=== PATIENT | female | born 1975 | race Caucasian/White ===

== ENCOUNTER → 2017-08-31 | Outpatient (CLI) | payer MEDICAID | END | disposition home or self-care (01) | LOC: DIB 14:46 | DX: E11.9 Type 2 diabetes mellitus without complications (principal) ==

== ENCOUNTER 2019-03-21 13:44 | Inpatient (IN) | payer MEDICAID ==
[2019-03-21 14:13] LABS: AADO2 Venous 78.2 mmHg; MODE ROOM AIR; MetHgb Venous 0.2 %; Sample Type Blood venous; Site OTHER; Venous COHb 0.6 %; Venous Fraction OxyHgb 71.1 %; Venous Oxygen Sat 71.7 mmHG (55.0-75.0); Venous Total Hemglobin 12.3 g/dl
[2019-03-21 14:18] LABS: WHITE BLOOD COUNT 5.9 10^3/ul (4.8-10.8)
[2019-03-21 14:18] LABS: HEMOGLOBIN 11.3 g/dl (12.0-16.0); MEAN CORPUSCULAR HEMOGLOBIN 21.6 pg (29.0-33.0); MEAN CORPUSCULAR HGB CONC 29.7 g/dl (32.0-37.0); MEAN CORPUSCULAR VOLUME 72.7 fl (82.0-101.0); MEAN PLATELET VOLUME 9.1 fl (7.4-10.4); PLATELET COUNT 272 10^3/UL (140-415); RED BLOOD COUNT 5.23 10^6/ul (4.20-5.40); RED CELL DISTRIBUTION WIDTH 17.1 % (11.5-14.5)
[2019-03-21 14:30] LABS: ADD MAN DIFF? YES; POSITIVE DIFF @See below
[2019-03-21 14:36] LABS: ALANINE AMINOTRANSFERASE 22 IU/L (13-69); ALBUMIN 4.1 g/dl (3.3-4.9); ALBUMIN/GLOBULIN RATIO 0.97; ALKALINE PHOSPHATASE 125 IU/L (42-121); ANION GAP 17 (5-13); ASPARTATE AMINO TRANSFERASE 35 IU/L (15-46); BILIRUBIN,INDIRECT 0.4 mg/dl (0-1.1); BILIRUBIN,TOTAL 0.4 mg/dl (0.2-1.3); BLOOD UREA NITROGEN 10 mg/dl (7-20); CALCIUM 8.6 mg/dl (8.4-10.2); CARBON DIOXIDE 17 mmol/L (21-31); CHLORIDE 105 mmol/L (97-110); CREATININE 0.64 mg/dl (0.44-1.00); Estimated GFR > 60 mL/min (>60); GLUCOSE 326 mg/dl (70-220); INR 0.98; MAGNESIUM 1.4 mg/dl (1.7-2.5); PHOSPHORUS 3.5 mg/dl (2.5-4.9); PROTIME 13.1 Sec (11.9-14.9); SODIUM 139 mmol/L (135-144); TOTAL PROTEIN 8.3 g/dl (6.1-8.1)
[2019-03-21 14:37] LABS: PARTIAL THROMBOPLASTIN TIME 26.2 Sec (23.0-35.0)
[2019-03-21] MEDS: CEFEPIME 2GM/50 ML (PMX) 50 ML IVPB (14:37)
[2019-03-21] MEDS: ACETAMINOPHEN 325 MG TAB PO (14:37)
[2019-03-21] MEDS: SODIUM CHLORIDE 0.9% 1L BAG IV* (14:38)
[2019-03-21] MEDS: KETOROLAC 15 MG INJ IV (14:38)
[2019-03-21] MEDS: ONDANSETRON 4 MG INJ IV (14:38)
[2019-03-21 14:47] LABS: TROPONIN-I < 0.012 ng/ml (0.000-0.120)
[2019-03-21 14:51] LABS: ANISOCYTOSIS 2+ (0-0); BAND NEUTROPHILS #M 0.8 10^3/ul (0.0-0.6); BAND NEUTROPHILS % (M) 14 % (0-4); BASOPHILS % (M) 1 % (0-2); BURR CELLS 1+ (0-0); LYMPHOCYTES % (M) 35 % (15-51); MICROCYTOSIS 1+ (0-0); PLATELET ESTIMATE NORMAL; POIKILOCYTOSIS 3+ (0-0); POLYCHROMASIA 3+ (0-0); REACTIVE LYMPHOCYTES #M 0.2 10^3/ul (0.0-0.0); REACTIVE LYMPHOCYTES% (M) 4 % (0-0); SEG NEUT #M 2.8 10^3/ul (1.6-7.5); SEGMENTED NEUTROPHILS (M) % 46 % (39-77); SMUDGE%M 9 % (0-0)
[2019-03-21] MEDS: VANCOMYCIN 1 GM (PMX) 250 ML IVPB (15:07)
[2019-03-21 15:20] LABS: ADD UMIC YES; UR ASCORBIC ACID NEGATIVE (NEGATIVE); UR BACTERIA FEW /HPF (NONE SEEN); UR BILIRUBIN (Dip) NEGATIVE (NEGATIVE); UR BLOOD (Dip) 3+ mg/dL (NEGATIVE); UR CLARITY CLOUDY (CLEAR); UR COLOR YELLOW (YELLOW); UR GLUCOSE (Dip) 3+ mg/dL (NEGATIVE); UR KETONES (Dip) 1+ mg/dL (NEGATIVE); UR LEUKOCYTE ESTERASE (Dip) 1+ Leu/ul (NEGATIVE); UR MUCUS FEW /HPF (NONE SEEN); UR NITRITE (Dip) NEGATIVE (NEGATIVE); UR RBC > 182 /HPF (0-5); UR SPECIFIC GRAVITY (Dip) 1.027 (1.003-1.030); UR SQUAMOUS EPITHELIAL CELL MANY /HPF (FEW); UR TOTAL PROTEIN (Dip) 3+ mg/dl (NEGATIVE); UR UROBILINOGEN (Dip) NEGATIVE (NEGATIVE); UR WBC 51 /HPF (0-5)
[2019-03-21 16:55] LABS: LACTIC ACID 1.2 mmol/L (0.5-2.0)
[2019-03-21] MEDS: ACCU-CHEK XX (17:00)
[2019-03-21] MEDS: SOD CHLORIDE 0.9% 1,000 ML IV ×2 (17:08→17:45)
[2019-03-21] MEDS: INSULIN LISPRO 100 UNIT/ML VIAL SC (17:12)
[2019-03-21] MEDS ORDERED: ACETAMINOPHEN 325 MG TAB PO (18:00)
[2019-03-21] MEDS ORDERED: ONDANSETRON 4 MG INJ IV ×2 (18:00→19:00)
[2019-03-21] MEDS ORDERED: NACL 0.9% 3 ML SYG IV (19:00)
[2019-03-21 19:04] LABS: LACTIC ACID 1.3 mmol/L (0.5-2.0)
[2019-03-21] MEDS ORDERED: GLUCAGON 1 MG INJ IM (19:30)
[2019-03-21] MEDS ORDERED: GLUCOSE GEL 15 GRAM TUBE PO ×2 (19:30)
[2019-03-21] MEDS ORDERED: GLUCOSE GEL 15 GRAM TUBE BUCCAL (19:30)
[2019-03-21] MEDS ORDERED: DEXTROSE 50% 50 ML SYRINGE IV ×2 (19:30)
[2019-03-21] MEDS: CEFTRIAXONE 1 GM/50 ML (PMX) 50 ML IVPB (19:59)
[2019-03-21] MEDS: INSULIN ASPART [NOVOLOG] 3 ML PEN SC (20:05)
[2019-03-21] MEDS: metroNIDAZOLE 500 MG/NS (PMX) 100 ML IVPB (21:12)
[2019-03-21 21:43] LABS: PROCALCITONIN 1.11 ng/mL (0.00-0.10)
[2019-03-21] MEDS ORDERED: metroNIDAZOLE (5 MG/ML) IV SYG IV* (22:00)
[2019-03-21] MEDS ORDERED: AL HYDROX/MG HYDROX/SIMETH 30 ML CUP PO (22:30)
[2019-03-21] MEDS: PANTOPRAZOLE (EC) 40 MG TAB PO (22:36)
[2019-03-22] MEDS: ACCU-CHEK XX (02:22)
[2019-03-22] MEDS: metroNIDAZOLE 500 MG/NS (PMX) 100 ML IVPB ×2 (05:24→13:14)
[2019-03-22 05:53] LABS: ADD MAN DIFF? NO
[2019-03-22 06:03] LABS: BASOPHILS % 0.1 % (0.0-2.0); EOSINOPHILS % 0.1 % (0.0-7.0); HEMATOCRIT 29.1 % (37.0-47.0); HEMOGLOBIN 8.6 g/dl (12.0-16.0); LYMPHOCYTES # 1.2 10^3/ul (0.8-2.9); LYMPHOCYTES % 16.5 % (15.0-51.0); MEAN CORPUSCULAR HEMOGLOBIN 21.8 pg (29.0-33.0); MEAN CORPUSCULAR HGB CONC 29.6 g/dl (32.0-37.0); MEAN CORPUSCULAR VOLUME 73.7 fl (82.0-101.0); MEAN PLATELET VOLUME 9.6 fl (7.4-10.4); MONOCYTE # 0.6 10^3/ul (0.3-0.9); MONOCYTES % 8.7 % (0.0-11.0); NEUTROPHIL # 5.3 10^3/ul (1.6-7.5); NEUTROPHILS % 74.3 % (39.0-77.0); PLATELET COUNT 213 10^3/UL (140-415); RED BLOOD COUNT 3.95 10^6/ul (4.20-5.40); RED CELL DISTRIBUTION WIDTH 17.5 % (11.5-14.5)
[2019-03-22 06:03] LABS: WHITE BLOOD COUNT 7.1 10^3/ul (4.8-10.8)
[2019-03-22] MEDS: PANTOPRAZOLE (EC) 40 MG TAB PO (06:21)
[2019-03-22 06:30] LABS: ALANINE AMINOTRANSFERASE 30 IU/L (13-69); ALBUMIN 2.8 g/dl (3.3-4.9); ALBUMIN/GLOBULIN RATIO 0.87; ALKALINE PHOSPHATASE 77 IU/L (42-121); ANION GAP 7 (5-13); ASPARTATE AMINO TRANSFERASE 28 IU/L (15-46); BILIRUBIN,INDIRECT 0.3 mg/dl (0-1.1); BILIRUBIN,TOTAL 0.3 mg/dl (0.2-1.3); BLOOD UREA NITROGEN 9 mg/dl (7-20); CALCIUM 7.3 mg/dl (8.4-10.2); CARBON DIOXIDE 20 mmol/L (21-31); CHLORIDE 112 mmol/L (97-110); Estimated GFR > 60 mL/min (>60); GLUCOSE 148 mg/dl (70-220); MAGNESIUM 1.7 mg/dl (1.7-2.5); PHOSPHORUS 2.6 mg/dl (2.5-4.9); POTASSIUM 3.3 mmol/L (3.5-5.1); SODIUM 139 mmol/L (135-144)
[2019-03-22 06:42] LABS: IRON < 10 ug/dl (35-150)
[2019-03-22 06:50] LABS: TOTAL IRON BINDING CAPACITY 319 ug/dl (241-421)
[2019-03-22] MEDS: POTASSIUM CHLORIDE (SR) 20 MEQ TAB PO (07:01)
[2019-03-22] MEDS: INSULIN ASPART [NOVOLOG] 3 ML PEN SC ×4 (07:36→22:01)
[2019-03-22] MEDS: ACETAMINOPHEN 325 MG TAB PO ×2 (10:39→21:45)
[2019-03-22 10:48] LABS: THYROID STIMULATING HORMONE 0.473 MIU/L (0.465-4.680)
[2019-03-22 10:56] LABS: FERRITIN 15.1 ng/ml (6.2-137.0)
[2019-03-22] MEDS: MAGNESIUM OXIDE 400 MG TAB PO (15:05)
[2019-03-22] MEDS: CEFTRIAXONE 1 GM/50 ML (PMX) 50 ML IVPB (21:45)
[2019-03-23] MEDS: ACCU-CHEK XX (02:00)
[2019-03-23 05:55] LABS: ADD MAN DIFF? NO
[2019-03-23] MEDS: PANTOPRAZOLE (EC) 40 MG TAB PO (06:07)
[2019-03-23 06:17] LABS: BASOPHILS % 0.2 % (0.0-2.0); EOSINOPHILS % 0.6 % (0.0-7.0); HEMATOCRIT 29.6 % (37.0-47.0); HEMOGLOBIN 8.6 g/dl (12.0-16.0); LYMPHOCYTES # 2.4 10^3/ul (0.8-2.9); LYMPHOCYTES % 45.9 % (15.0-51.0); MEAN CORPUSCULAR HEMOGLOBIN 21.4 pg (29.0-33.0); MEAN CORPUSCULAR HGB CONC 29.1 g/dl (32.0-37.0); MEAN CORPUSCULAR VOLUME 73.8 fl (82.0-101.0); MEAN PLATELET VOLUME 9.9 fl (7.4-10.4); MONOCYTE # 0.7 10^3/ul (0.3-0.9); MONOCYTES % 12.7 % (0.0-11.0); NEUTROPHIL # 2.1 10^3/ul (1.6-7.5); NEUTROPHILS % 40.2 % (39.0-77.0); PLATELET COUNT 237 10^3/UL (140-415); RED BLOOD COUNT 4.01 10^6/ul (4.20-5.40); RED CELL DISTRIBUTION WIDTH 17.6 % (11.5-14.5)
[2019-03-23 06:17] LABS: WHITE BLOOD COUNT 5.3 10^3/ul (4.8-10.8)
[2019-03-23 06:27] LABS: ANION GAP 6 (5-13); BLOOD UREA NITROGEN 4 mg/dl (7-20); CALCIUM 7.8 mg/dl (8.4-10.2); CARBON DIOXIDE 22 mmol/L (21-31); CHLORIDE 111 mmol/L (97-110); CREATININE 0.48 mg/dl (0.44-1.00); Estimated GFR > 60 mL/min (>60); GLUCOSE 155 mg/dl (70-220); MAGNESIUM 2.2 mg/dl (1.7-2.5); POTASSIUM 3.4 mmol/L (3.5-5.1); SODIUM 139 mmol/L (135-144)
[2019-03-23] MEDS: INSULIN ASPART [NOVOLOG] 3 ML PEN SC ×4 (07:56→20:15)
[2019-03-23] MEDS: ACETAMINOPHEN 325 MG TAB PO ×2 (12:00→19:52)
[2019-03-23] MEDS: CEFTRIAXONE 1 GM/50 ML (PMX) 50 ML IVPB (20:16)
[2019-03-24] MEDS: ACCU-CHEK XX (02:00)
[2019-03-24] MEDS: PANTOPRAZOLE (EC) 40 MG TAB PO (06:02)
[2019-03-24] MEDS: IBUPROFEN 600 MG TAB PO ×2 (06:05→20:26)
[2019-03-24] MEDS: INSULIN ASPART [NOVOLOG] 3 ML PEN SC ×5 (07:53→20:34)
[2019-03-24] MEDS: CEFTRIAXONE 1 GM/50 ML (PMX) 50 ML IVPB (20:27)
[2019-03-25] MEDS: ACCU-CHEK XX (02:00)
[2019-03-25] MEDS: PANTOPRAZOLE (EC) 40 MG TAB PO (06:00)
[2019-03-25] MEDS: INSULIN ASPART [NOVOLOG] 3 ML PEN SC ×7 (07:51→20:22)
[2019-03-25] MEDS: INSULIN GLARGINE [LANTus] (100 UNITS/ML) SYG SC (07:51)
[2019-03-25] MEDS: ERTAPENEM SODIUM 1 GM in SOD CHLORIDE 0.9% 100 ML IVPB (12:48)
[2019-03-25] MEDS: IBUPROFEN 600 MG TAB PO (15:20)
[2019-03-26] MEDS: ACCU-CHEK XX (02:00)
[2019-03-26] MEDS: IBUPROFEN 600 MG TAB PO ×2 (03:32→13:51)
[2019-03-26] MEDS: PANTOPRAZOLE (EC) 40 MG TAB PO (05:48)
[2019-03-26 05:56] LABS: ADD MAN DIFF? NO
[2019-03-26 06:00] LABS: BASOPHILS % 0.3 % (0.0-2.0); EOSINOPHILS # 0.1 10^3/ul (0.0-0.5); EOSINOPHILS % 1.5 % (0.0-7.0); HEMATOCRIT 32.6 % (37.0-47.0); HEMOGLOBIN 9.5 g/dl (12.0-16.0); LYMPHOCYTES # 2.7 10^3/ul (0.8-2.9); LYMPHOCYTES % 45.1 % (15.0-51.0); MEAN CORPUSCULAR HEMOGLOBIN 21.3 pg (29.0-33.0); MEAN CORPUSCULAR HGB CONC 29.1 g/dl (32.0-37.0); MEAN CORPUSCULAR VOLUME 72.9 fl (82.0-101.0); MEAN PLATELET VOLUME 9.1 fl (7.4-10.4); MONOCYTE # 0.4 10^3/ul (0.3-0.9); MONOCYTES % 7.3 % (0.0-11.0); NEUTROPHIL # 2.7 10^3/ul (1.6-7.5); NEUTROPHILS % 45.5 % (39.0-77.0); PLATELET COUNT 324 10^3/UL (140-415); RED BLOOD COUNT 4.47 10^6/ul (4.20-5.40); RED CELL DISTRIBUTION WIDTH 17.4 % (11.5-14.5)
[2019-03-26 06:40] LABS: ANION GAP 6 (5-13); BLOOD UREA NITROGEN 12 mg/dl (7-20); CALCIUM 8.1 mg/dl (8.4-10.2); CARBON DIOXIDE 27 mmol/L (21-31); CHLORIDE 107 mmol/L (97-110); CREATININE 0.52 mg/dl (0.44-1.00); Estimated GFR > 60 mL/min (>60); GLUCOSE 232 mg/dl (70-220); POTASSIUM 3.7 mmol/L (3.5-5.1); SODIUM 140 mmol/L (135-144)
[2019-03-26] MEDS: INSULIN GLARGINE [LANTus] (100 UNITS/ML) SYG SC (08:53)
[2019-03-26] MEDS: INSULIN ASPART [NOVOLOG] 3 ML PEN SC ×7 (08:54→20:22)
[2019-03-26] MEDS: ERTAPENEM SODIUM 1 GM in SOD CHLORIDE 0.9% 100 ML IVPB (13:39)
[2019-03-27] MEDS: ACCU-CHEK XX (02:00)
[2019-03-27] MEDS: PANTOPRAZOLE (EC) 40 MG TAB PO (05:23)
[2019-03-27] MEDS: IBUPROFEN 600 MG TAB PO (05:26)
[2019-03-27 06:10] LABS: ADD MAN DIFF? NO
[2019-03-27 06:15] LABS: BASOPHILS % 0.3 % (0.0-2.0); EOSINOPHILS # 0.1 10^3/ul (0.0-0.5); EOSINOPHILS % 1.7 % (0.0-7.0); HEMATOCRIT 31.9 % (37.0-47.0); HEMOGLOBIN 9.4 g/dl (12.0-16.0); LYMPHOCYTES # 2.6 10^3/ul (0.8-2.9); MEAN CORPUSCULAR HEMOGLOBIN 21.4 pg (29.0-33.0); MEAN CORPUSCULAR HGB CONC 29.5 g/dl (32.0-37.0); MEAN CORPUSCULAR VOLUME 72.7 fl (82.0-101.0); MONOCYTE # 0.5 10^3/ul (0.3-0.9); MONOCYTES % 6.9 % (0.0-11.0); NEUTROPHIL # 3.8 10^3/ul (1.6-7.5); NEUTROPHILS % 53.5 % (39.0-77.0); PLATELET COUNT 383 10^3/UL (140-415); RED BLOOD COUNT 4.39 10^6/ul (4.20-5.40); RED CELL DISTRIBUTION WIDTH 17.6 % (11.5-14.5)
[2019-03-27 06:15] LABS: WHITE BLOOD COUNT 7.1 10^3/ul (4.8-10.8)
[2019-03-27 06:42] LABS: ANION GAP 8 (5-13); BLOOD UREA NITROGEN 13 mg/dl (7-20); CALCIUM 8.2 mg/dl (8.4-10.2); CARBON DIOXIDE 25 mmol/L (21-31); CHLORIDE 107 mmol/L (97-110); CREATININE 0.43 mg/dl (0.44-1.00); Estimated GFR > 60 mL/min (>60); GLUCOSE 206 mg/dl (70-220); POTASSIUM 4.1 mmol/L (3.5-5.1); SODIUM 140 mmol/L (135-144)
[2019-03-27] MEDS: INSULIN ASPART [NOVOLOG] 3 ML PEN SC ×8 (08:27→21:14)
[2019-03-27] MEDS: INSULIN GLARGINE [LANTus] (100 UNITS/ML) SYG SC (08:27)
[2019-03-27] MEDS: ERTAPENEM SODIUM 1 GM in SOD CHLORIDE 0.9% 100 ML IVPB (13:19)
[2019-03-28] MEDS: ACCU-CHEK XX (02:00)
[2019-03-28] MEDS: PANTOPRAZOLE (EC) 40 MG TAB PO (06:17)
[2019-03-28] MEDS: INSULIN ASPART [NOVOLOG] 3 ML PEN SC ×7 (09:11→21:00)
[2019-03-28] MEDS: INSULIN GLARGINE [LANTus] (100 UNITS/ML) SYG SC (09:11)
[2019-03-28 09:25] LABS: ADD MAN DIFF? NO
[2019-03-28 09:34] LABS: WHITE BLOOD COUNT 7.5 10^3/ul (4.8-10.8)
[2019-03-28 09:34] LABS: BASOPHILS % 0.3 % (0.0-2.0); EOSINOPHILS # 0.1 10^3/ul (0.0-0.5); EOSINOPHILS % 1.3 % (0.0-7.0); HEMATOCRIT 35.8 % (37.0-47.0); HEMOGLOBIN 10.5 g/dl (12.0-16.0); LYMPHOCYTES # 2.7 10^3/ul (0.8-2.9); LYMPHOCYTES % 36.1 % (15.0-51.0); MEAN CORPUSCULAR HEMOGLOBIN 21.4 pg (29.0-33.0); MEAN CORPUSCULAR HGB CONC 29.3 g/dl (32.0-37.0); MEAN CORPUSCULAR VOLUME 72.9 fl (82.0-101.0); MEAN PLATELET VOLUME 8.8 fl (7.4-10.4); MONOCYTE # 0.4 10^3/ul (0.3-0.9); MONOCYTES % 5.6 % (0.0-11.0); NEUTROPHIL # 4.2 10^3/ul (1.6-7.5); NEUTROPHILS % 56.2 % (39.0-77.0); PLATELET COUNT 429 10^3/UL (140-415); RED BLOOD COUNT 4.91 10^6/ul (4.20-5.40); RED CELL DISTRIBUTION WIDTH 17.7 % (11.5-14.5)
[2019-03-28 09:53] LABS: ANION GAP 9 (5-13); BLOOD UREA NITROGEN 14 mg/dl (7-20); CALCIUM 8.8 mg/dl (8.4-10.2); CARBON DIOXIDE 26 mmol/L (21-31); CHLORIDE 104 mmol/L (97-110); CREATININE 0.47 mg/dl (0.44-1.00); Estimated GFR > 60 mL/min (>60); GLUCOSE 282 mg/dl (70-220); POTASSIUM 4.6 mmol/L (3.5-5.1); SODIUM 139 mmol/L (135-144)
[2019-03-28] MEDS: ERTAPENEM SODIUM 1 GM in SOD CHLORIDE 0.9% 100 ML IVPB (13:34)
[2019-03-28] MEDS: IBUPROFEN 600 MG TAB PO (21:09)
[2019-03-29] MEDS: ACCU-CHEK XX (02:00)
[2019-03-29] MEDS: PANTOPRAZOLE (EC) 40 MG TAB PO (05:48)
[2019-03-29 06:22] LABS: ADD MAN DIFF? NO
[2019-03-29 06:25] LABS: WHITE BLOOD COUNT 6.5 10^3/ul (4.8-10.8)
[2019-03-29 06:25] LABS: BASOPHILS % 0.3 % (0.0-2.0); EOSINOPHILS # 0.1 10^3/ul (0.0-0.5); HEMOGLOBIN 9.9 g/dl (12.0-16.0); LYMPHOCYTES # 3.3 10^3/ul (0.8-2.9); MEAN CORPUSCULAR VOLUME 73.3 fl (82.0-101.0); MONOCYTE # 0.5 10^3/ul (0.3-0.9); MONOCYTES % 7.8 % (0.0-11.0); NEUTROPHIL # 2.6 10^3/ul (1.6-7.5); NEUTROPHILS % 39.6 % (39.0-77.0); PLATELET COUNT 429 10^3/UL (140-415); RED CELL DISTRIBUTION WIDTH 17.2 % (11.5-14.5)
[2019-03-29 06:46] LABS: ANION GAP 7 (5-13); BLOOD UREA NITROGEN 16 mg/dl (7-20); CARBON DIOXIDE 29 mmol/L (21-31); CHLORIDE 104 mmol/L (97-110); CREATININE 0.62 mg/dl (0.44-1.00); Estimated GFR > 60 mL/min (>60); GLUCOSE 181 mg/dl (70-220); POTASSIUM 4.2 mmol/L (3.5-5.1); SODIUM 140 mmol/L (135-144)
[2019-03-29] MEDS: INSULIN ASPART [NOVOLOG] 3 ML PEN SC ×7 (08:28→20:47)
[2019-03-29] MEDS: INSULIN GLARGINE [LANTus] (100 UNITS/ML) SYG SC (08:28)
[2019-03-29] MEDS: ERTAPENEM SODIUM 1 GM in SOD CHLORIDE 0.9% 100 ML IVPB (14:00)
[2019-03-30] MEDS: ACCU-CHEK XX (02:00)
[2019-03-30] MEDS: PANTOPRAZOLE (EC) 40 MG TAB PO (05:42)
[2019-03-30 06:04] LABS: ADD MAN DIFF? NO
[2019-03-30 06:11] LABS: ABNORMAL IP MESSAGE 1; BASOPHILS % 0.6 % (0.0-2.0); EOSINOPHILS # 0.1 10^3/ul (0.0-0.5); EOSINOPHILS % 2.2 % (0.0-7.0); HEMOGLOBIN 9.8 g/dl (12.0-16.0); LYMPHOCYTES # 3.2 10^3/ul (0.8-2.9); LYMPHOCYTES % 48.7 % (15.0-51.0); MEAN CORPUSCULAR HEMOGLOBIN 21.3 pg (29.0-33.0); MEAN CORPUSCULAR HGB CONC 28.8 g/dl (32.0-37.0); MEAN CORPUSCULAR VOLUME 73.8 fl (82.0-101.0); MEAN PLATELET VOLUME 8.8 fl (7.4-10.4); MONOCYTE # 0.5 10^3/ul (0.3-0.9); MONOCYTES % 8.1 % (0.0-11.0); NEUTROPHIL # 2.6 10^3/ul (1.6-7.5); NEUTROPHILS % 40.1 % (39.0-77.0); PLATELET COUNT 416 10^3/UL (140-415); RED BLOOD COUNT 4.61 10^6/ul (4.20-5.40); RED CELL DISTRIBUTION WIDTH 17.1 % (11.5-14.5)
[2019-03-30 06:11] LABS: WHITE BLOOD COUNT 6.5 10^3/ul (4.8-10.8)
[2019-03-30 06:23] LABS: POSITIVE DIFF @See below
[2019-03-30 06:55] LABS: ANION GAP 7 (5-13); BLOOD UREA NITROGEN 13 mg/dl (7-20); CALCIUM 8.9 mg/dl (8.4-10.2); CARBON DIOXIDE 28 mmol/L (21-31); CHLORIDE 103 mmol/L (97-110); CREATININE 0.55 mg/dl (0.44-1.00); Estimated GFR > 60 mL/min (>60); GLUCOSE 187 mg/dl (70-220); POTASSIUM 4.7 mmol/L (3.5-5.1); SODIUM 138 mmol/L (135-144)
[2019-03-30] MEDS: INSULIN ASPART [NOVOLOG] 3 ML PEN SC ×7 (08:19→21:00)
[2019-03-30] MEDS: INSULIN GLARGINE [LANTus] (100 UNITS/ML) SYG SC (08:20)
[2019-03-30] MEDS: ERTAPENEM SODIUM 1 GM in SOD CHLORIDE 0.9% 100 ML IVPB (13:49)
[2019-03-31] MEDS: ACCU-CHEK XX (01:22)
[2019-03-31 05:25] LABS: ADD MAN DIFF? NO
[2019-03-31 05:30] LABS: WHITE BLOOD COUNT 6.5 10^3/ul (4.8-10.8)
[2019-03-31 05:30] LABS: BASOPHILS % 0.5 % (0.0-2.0); EOSINOPHILS # 0.1 10^3/ul (0.0-0.5); EOSINOPHILS % 1.4 % (0.0-7.0); HEMATOCRIT 34.4 % (37.0-47.0); HEMOGLOBIN 10.1 g/dl (12.0-16.0); LYMPHOCYTES % 45.9 % (15.0-51.0); MEAN CORPUSCULAR HEMOGLOBIN 21.6 pg (29.0-33.0); MEAN CORPUSCULAR HGB CONC 29.4 g/dl (32.0-37.0); MEAN CORPUSCULAR VOLUME 73.7 fl (82.0-101.0); MEAN PLATELET VOLUME 9.1 fl (7.4-10.4); MONOCYTE # 0.5 10^3/ul (0.3-0.9); MONOCYTES % 7.1 % (0.0-11.0); NEUTROPHIL # 2.9 10^3/ul (1.6-7.5); NEUTROPHILS % 44.9 % (39.0-77.0); PLATELET COUNT 456 10^3/UL (140-415); RED BLOOD COUNT 4.67 10^6/ul (4.20-5.40); RED CELL DISTRIBUTION WIDTH 17.1 % (11.5-14.5)
[2019-03-31] MEDS: PANTOPRAZOLE (EC) 40 MG TAB PO (05:36)
[2019-03-31 06:06] LABS: ANION GAP 8 (5-13); BLOOD UREA NITROGEN 17 mg/dl (7-20); CARBON DIOXIDE 28 mmol/L (21-31); CHLORIDE 102 mmol/L (97-110); CREATININE 0.59 mg/dl (0.44-1.00); Estimated GFR > 60 mL/min (>60); GLUCOSE 183 mg/dl (70-220); POTASSIUM 4.4 mmol/L (3.5-5.1); SODIUM 138 mmol/L (135-144)
[2019-03-31] MEDS: INSULIN ASPART [NOVOLOG] 3 ML PEN SC ×7 (08:08→20:58)
[2019-03-31] MEDS: INSULIN GLARGINE [LANTus] (100 UNITS/ML) SYG SC (08:19)
[2019-03-31] MEDS: ERTAPENEM SODIUM 1 GM in SOD CHLORIDE 0.9% 100 ML IVPB (12:34)
[2019-04-01] MEDS: ACCU-CHEK XX (02:17)
[2019-04-01 06:07] LABS: ADD MAN DIFF? NO
[2019-04-01] MEDS: PANTOPRAZOLE (EC) 40 MG TAB PO (06:09)
[2019-04-01 06:28] LABS: BASOPHILS % 0.3 % (0.0-2.0); EOSINOPHILS # 0.1 10^3/ul (0.0-0.5); EOSINOPHILS % 1.9 % (0.0-7.0); HEMATOCRIT 35.2 % (37.0-47.0); HEMOGLOBIN 10.3 g/dl (12.0-16.0); LYMPHOCYTES # 2.8 10^3/ul (0.8-2.9); LYMPHOCYTES % 47.7 % (15.0-51.0); MEAN CORPUSCULAR HEMOGLOBIN 21.4 pg (29.0-33.0); MEAN CORPUSCULAR HGB CONC 29.3 g/dl (32.0-37.0); MONOCYTE # 0.5 10^3/ul (0.3-0.9); MONOCYTES % 8.1 % (0.0-11.0); NEUTROPHIL # 2.4 10^3/ul (1.6-7.5); NEUTROPHILS % 41.8 % (39.0-77.0); PLATELET COUNT 432 10^3/UL (140-415); RED BLOOD COUNT 4.82 10^6/ul (4.20-5.40); RED CELL DISTRIBUTION WIDTH 16.6 % (11.5-14.5)
[2019-04-01 06:28] LABS: WHITE BLOOD COUNT 5.8 10^3/ul (4.8-10.8)
[2019-04-01 06:53] LABS: ANION GAP 6 (5-13); BLOOD UREA NITROGEN 17 mg/dl (7-20); CALCIUM 8.9 mg/dl (8.4-10.2); CARBON DIOXIDE 29 mmol/L (21-31); CHLORIDE 102 mmol/L (97-110); Estimated GFR > 60 mL/min (>60); GLUCOSE 215 mg/dl (70-220); POTASSIUM 4.7 mmol/L (3.5-5.1); SODIUM 137 mmol/L (135-144)
[2019-04-01] MEDS: INSULIN ASPART [NOVOLOG] 3 ML PEN SC ×4 (08:26→13:27)
[2019-04-01] MEDS: INSULIN GLARGINE [LANTus] (100 UNITS/ML) SYG SC (08:28)
[2019-04-01] MEDS: ERTAPENEM SODIUM 1 GM in SOD CHLORIDE 0.9% 100 ML IVPB (13:20)
[2019-04-01] MEDS ORDERED: metFORMIN 500 MG TAB NGT (18:00)
== END 2019-04-01 17:10 | disposition home health service (06) | DRG 872 ==
LOC: 6WM 17:33 → 2NE 03-29 16:06 → E/R 13:44
DX: A41.9 Sepsis, unspecified organism (principal); N39.0 Urinary tract infection, site not specified; R65.20 Severe sepsis without septic shock; E11.65 Type 2 diabetes mellitus with hyperglycemia; D50.9 Iron deficiency anemia, unspecified; B96.20 Unspecified Escherichia coli [E. coli] as the cause of diseases classified elsewhere; E66.9 Obesity, unspecified; Z68.32 Body mass index [BMI] 32.0-32.9, adult
CPT/HCPCS: 36415; 71045; 80048; 80053; 81001; 82728; 82803; 82962; 83036; 83540; 83605; 83735; 84100; 84145; 84443; 84484; 84703; 85025; 85610; 85730; 87040-91; 87086; 87400; 93005; 96365; 96366; 96367; 96372; 96375; 99285-25

== ENCOUNTER 2019-06-23 13:36 | Emergency (ER) | payer SELFPAY, MEDICAID ==
[2019-06-23 14:39] LABS: ADD MAN DIFF? NO
[2019-06-23 14:45] LABS: WHITE BLOOD COUNT 9.9 10^3/ul (4.8-10.8)
[2019-06-23 14:45] LABS: BASOPHILS % 0.2 % (0.0-2.0); EOSINOPHILS % 0.4 % (0.0-7.0); HEMATOCRIT 37.1 % (37.0-47.0); HEMOGLOBIN 11.8 g/dl (12.0-16.0); LYMPHOCYTES # 1.9 10^3/ul (0.8-2.9); LYMPHOCYTES % 19.2 % (15.0-51.0); MEAN CORPUSCULAR HEMOGLOBIN 26.2 pg (29.0-33.0); MEAN CORPUSCULAR HGB CONC 31.8 g/dl (32.0-37.0); MEAN CORPUSCULAR VOLUME 82.3 fl (82.0-101.0); MEAN PLATELET VOLUME 9.5 fl (7.4-10.4); MONOCYTE # 0.9 10^3/ul (0.3-0.9); MONOCYTES % 8.8 % (0.0-11.0); NEUTROPHIL # 7.1 10^3/ul (1.6-7.5); NEUTROPHILS % 71.1 % (39.0-77.0); PLATELET COUNT 293 10^3/UL (140-415); RED BLOOD COUNT 4.51 10^6/ul (4.20-5.40); RED CELL DISTRIBUTION WIDTH 18.6 % (11.5-14.5)
[2019-06-23 15:01] LABS: ALANINE AMINOTRANSFERASE 23 IU/L (13-69); ALBUMIN 3.3 g/dl (3.3-4.9); ALBUMIN/GLOBULIN RATIO 0.84; ALKALINE PHOSPHATASE 74 IU/L (42-121); ANION GAP 7 (5-13); ASPARTATE AMINO TRANSFERASE 15 IU/L (15-46); BILIRUBIN,INDIRECT 0.4 mg/dl (0-1.1); BILIRUBIN,TOTAL 0.4 mg/dl (0.2-1.3); BLOOD UREA NITROGEN 12 mg/dl (7-20); CALCIUM 8.9 mg/dl (8.4-10.2); CARBON DIOXIDE 24 mmol/L (21-31); CHLORIDE 106 mmol/L (97-110); CREATININE 0.42 mg/dl (0.44-1.00); Estimated GFR > 60 mL/min (>60); GLUCOSE 178 mg/dl (70-220); SODIUM 137 mmol/L (135-144); TOTAL PROTEIN 7.2 g/dl (6.1-8.1)
[2019-06-23 15:02] LABS: LACTIC ACID 1.2 mmol/L (0.5-2.0)
[2019-06-23 15:26] LABS: ADD UMIC NO; UR ASCORBIC ACID NEGATIVE (NEGATIVE); UR BILIRUBIN (Dip) NEGATIVE (NEGATIVE); UR BLOOD (Dip) NEGATIVE (NEGATIVE); UR CLARITY CLEAR (CLEAR); UR COLOR YELLOW (YELLOW); UR GLUCOSE (Dip) 3+ mg/dL (NEGATIVE); UR KETONES (Dip) NEGATIVE (NEGATIVE); UR LEUKOCYTE ESTERASE (Dip) NEGATIVE Leu/ul (NEGATIVE); UR NITRITE (Dip) NEGATIVE (NEGATIVE); UR SPECIFIC GRAVITY (Dip) 1.023 (1.003-1.030); UR TOTAL PROTEIN (Dip) NEGATIVE (NEGATIVE); UR UROBILINOGEN (Dip) NEGATIVE (NEGATIVE)
[2019-06-23] MEDS: SOD CHLORIDE 0.9% 1,000 ML IV (16:10)
[2019-06-23] MEDS ORDERED: IOHEXOL 300MG/ML 150 ML BTL (16:58)
[2019-06-23] MEDS ORDERED: SOD CHLORIDE 0.9% 100 ML (16:58)
== END 2019-06-23 18:44 | disposition home or self-care (01) ==
LOC: E/R 13:36
DX: R50.9 Fever, unspecified (principal); E11.69 Type 2 diabetes mellitus with other specified complication; E66.9 Obesity, unspecified; Z79.4 Long term (current) use of insulin; Z68.32 Body mass index [BMI] 32.0-32.9, adult
CPT/HCPCS: 74177; 80053; 81003; 83605; 84703; 85025; 99285-25